=== PATIENT | female | born 1940 | race Caucasian/White ===

== ENCOUNTER 2017-07-04 15:10 | Inpatient (IN) | payer MEDICARE ==
[2017-07-04 15:49] VITALS: BMI 25.3
[2017-07-04] MEDS ORDERED: hydrALAZINE 20 MG/ML VIAL SLOW IVP PRN (18:31)
[2017-07-04] MEDS ORDERED: Dextrose 50% Abboject 50 ML SYRINGE SLOW IVP PRN (18:31)
[2017-07-04] MEDS ORDERED: Ondansetron ODT 4 MG TAB PO PRN (18:33)
[2017-07-04] MEDS ORDERED: Loperamide HCl 2 MG CAP PO PRN (18:33)
[2017-07-04] MEDS ORDERED: Milk Of Magnesia 30 ML UDCUP PO PRN (18:33)
[2017-07-04] MEDS ORDERED: SALIVA STIMULANT AGENTS COMB TOP PRN (19:00)
[2017-07-04] MEDS: traMADol HCl 50 MG TAB PO PRN (19:25)
[2017-07-04] MEDS: Famotidine 20 MG TAB PO SCH (21:33)
[2017-07-04] MEDS: Senokot S 8.6-50 MG TAB PO SCH (21:33)
[2017-07-05] MEDS: traMADol HCl 50 MG TAB PO PRN ×2 (00:22→06:05)
[2017-07-05] MEDS: Acetaminophen 500 MG TAB PO SCH ×4 (00:23→18:28)
--- NOTE | 2017-07-05 02:22 | HP ---
DATE OF ADMISSION: 07/04/2017 HISTORY OF PRESENT ILLNESS: Ms. Gonzalez is a very pleasant 77-year-old white female who was at [employer] when she tripped over something and fell. She had immediate onset of pain on her right hero e including her right hip and her right arm. She was brought by EMS to [facility], where she was evaluated and found to have a right impacted femoral neck fracture. Her right edwardo justino was also x-rayed, but was noted to be negative. She was admitted to the hospital and the next mo rning, Dr. Pb Guillen took her to the surgical suite, where he did an ORIF on her right femoral neck. Postoperatively, she has actually done very well and was transferred to [facility] for physical therapy and occupational therapy. PAST MEDICAL HISTORY: Positive for, 1. Diabetes type 2. 2. Hypertension. 3. Hyperlipidemia. 4. Hypothyroidism. 5. History of GI bleeds x2 in the past. 6. Generalized weakness. PAST SURGICAL HISTORY: 1. Right breast biopsy. 2. Appendectomy. 3. Cholecystectomy. 4. Hysterectomy. 5. Colonoscopy with cauterization of a bleeding vessel. 6. EGD with cauterization of a blood vessel. SOCIAL HISTORY: Reveals the patient smoked about 50 years and stopped in 2013. She smoked about a p ack a day, so she has a 97-[id number] history of smoking. She denies any alcohol or drug use. She is and lives with her in [place]. FAMILY HISTORY: Reveals the patient's father at age 86 of Alzheimer disease. The patient's mot her at age 88 and she had severe arthritis with osteoporosis. ALLERGIES: The patient has noted that she is allergic to CELEBREX, which gives her rash. REVIEW OF SYSTEMS: Revealed the patient denies any vision or hearing changes. The patient denies an y cough, cold, congestion, or wheezing. The patient denies any heart problems including palpitations , dyspnea on exertion, claudication, irregular or gilbert or tachy pulse. The patient denies any abdom inal pain including nausea, vomiting, diarrhea, constipation, or bloody stools. The patient denies a ny problems including nocturia, dysuria, urgency, frequency, or pyuria. The patient denies any mu sculoskeletal problems except for her right hip fracture and her right shoulder, which continues to a lucio quite a bit. She has had a right ORIF done on her femoral neck fracture. The patient denies any skin problems including rashes or new lesions. The patient denies any neurological problems includi ng focal deficits. The patient denies any psychological problems including anxiety and depressive di sorder. PHYSICAL EXAMINATION: VITAL SIGNS: Revealed blood pressure on admission was 123/59, pulse 78, respirations 18-20, O2 sat 9 3%-97% on room air, T-max 97.9. GENERAL: This is a well-developed, well-nourished, very pleasant white female in no apparent distres s at this time. HEENT: Reveals normocephalic, nontraumatic cranium. The pupils are equally round. Extraocular move ments are intact. Nose and throat are slightly dry. NECK: Supple without masses, nodes, or bruits. No jugular venous distention is noted. The patient did have some tenderness on the right side of her neck from falling, but that is mostly resolved. CHEST: Reveals no rales, rhonchi, wheezes, or cough. Breath sounds are little distant, but clear. HEART: Reveals a regular rate and rhythm without murmurs, gallops, or rubs. ABDOMEN: Soft and nontender without organomegaly. Normal bowel sounds are noted. No rebound or gua rding is noted. GENITOURINARY: Deferred. EXTREMITIES: Revealed good pulses in upper and lower extremities, 5/5. Right humerus does hurt with movement of arm, which has been x-rayed and is negative. Right leg has ORIF done at the right femor al neck. NEUROLOGIC: The patient has no focal deficit. She is alert and oriented x3. LABORATORY DATA: Lab is for tomorrow. ASSESSMENT: 1. Hypertension. 2. Diabetes type 2. 3. Hypothyroidism. 4. Hyperlipidemia. 5. Generalized weakness. 6. Fracture of right hip, status post open reduction internal fixation. 7. Generalized weakness. PLAN: 1. Continue physical therapy and occupational therapy. 2. We will continue to follow the patient's blood pressure closely. 3. We will continue to follow the patient's sugars closely with Accu-Cheks before meals and at bedti me. 4. We will continue to monitor the patient for any respiratory problems, especially in her face of 5 0-pack-year history of smoking. 5. We will continue physical therapy and occupational therapy to try to encourage this lady to get m uch better and return home to become independent.
[2017-07-05 05:23] LABS: #Eosinphils 0.2 thou/uL (0.0-0.7); #Lymphocytes 1.6 thou/uL (1.20-3.40); #Monocytes 0.9 thou/uL (0.11-0.59); %Basophils 0.6 % (0.0-1.0); %Eosinophils 3.4 % (0.0-10.0); %Lymphocytes 23.9 % (21.0-51.0); %Monocytes 12.8 % (0.0-10.0); %Neutrophils 59.3 % (42.0-75.0); Hemoglobin 9.9 g/dL (12.0-16.0); Mean Corpuscular HGB CONC 31.6 g/dL (32.0-36.0); Mean Corpuscular Hemoglobin 29.8 pg (27.0-31.0); Mean Platelet Volume 7.9 fL (7.4-10.4); Platelet Count 283 thou/uL (130-400); RBC Distribution Width 12.6 % (11.5-14.5); Red Blood Cell (RBC) Count 3.33 mill/uL (4.20-5.40); White Blood Cell (WBC) Count 6.8 thou/uL (4.8-10.8)
[2017-07-05 05:40] LABS: ALT (SGPT) 11 U/L (8-55); AST (SGOT) 15 U/L (5-34); Albumin 3.4 g/dL (3.4-4.8); Alkaline Phosphatase 69 U/L (40-150); Anion Gap 11 mmol/L (10-20); BUN (Urea Nitrogen) 11 mg/dL (9.8-20.1); Bilirubin, Total 0.4 mg/dL (0.2-1.2); Calc. Creatinine Clearance 87 mL/min (70-130); Calcium 9.8 mg/dL (7.8-10.44); Carbon Dioxide 30 mmol/L (23-31); Chloride 98 mmol/L (98-107); Estimated GFR-MDRD 90; Globulin 3.3 g/dL (2.4-3.5); Glucose 160 mg/dL (83-110); Potassium 4.4 mmol/L (3.5-5.1); Protein, Total 6.7 g/dL (6.0-8.3); Sodium 135 mmol/L (136-145)
[2017-07-05] MEDS: Levothyroxine Sodium 100 MCG TAB PO SCH (06:06)
[2017-07-05 06:51] LABS: Bilirubin Negative (Negative); Blood, Urine Negative (Negative); Clarity Clear (Clear); Glucose, Urine (Dipstick) Negative (Negative); Leukocyte Small (Negative); Nitrite Negative (Negative); Protein, Urine (Dipstick) Negative (Neg-Trace); Specific Gravity, Urine 1.015 (1.005-1.030); pH, Urine 7.5 (5.0-9.0)
[2017-07-05 07:01] LABS: RBC/HPF None Seen HPF (0-3); Squamous Epithelial 0-3 HPF (0-3)
[2017-07-05 07:02] LABS: Bacteria/HPF 1+ HPF (None Seen)
[2017-07-05] MEDS: Senokot S 8.6-50 MG TAB PO SCH ×2 (08:23→21:09)
[2017-07-05] MEDS: metFORMIN 500 MG TAB PO SCH (08:23)
[2017-07-05] MEDS: Famotidine 20 MG TAB PO SCH ×2 (08:23→21:09)
[2017-07-05] MEDS: Potassium Chloride 20 MEQ TAB PO SCH (08:23)
[2017-07-05] MEDS: Rosuvastatin 10 MG TAB PO SCH (08:24)
[2017-07-05] MEDS: Furosemide 20 MG TAB PO SCH (08:24)
[2017-07-05] MEDS: Lisinopril 5 MG TAB PO SCH (08:24)
[2017-07-05] MEDS: Polyethylene Glycol 3350 17 GM Packet PO SCH (08:24)
[2017-07-05] MEDS: Enoxaparin Sodium 40 MG/0.4 ML SYRINGE SC SCH (08:25)
[2017-07-05] MEDS: Bisacodyl 10 MG SUPP PR SCH (08:26)
[2017-07-05] MEDS ORDERED: Enoxaparin Sodium 40 MG/0.4 ML SYRINGE SC SCH (09:00)
--- NOTE | 2017-07-05 20:27 | PRG ---
DATE OF SERVICE: 07/05/2017 HISTORY OF PRESENT ILLNESS: Ms. Gonzalez is a very pleasant 77-year-old white female. She was shoppin g at [facility] when she tripped and fell. She had immediate onset of pain in the right side includin g hip and right arm. Right arm was unremarkable, but a right hip revealed a fracture. She was taken to the surgical suite by Dr. Guillen and had an ORIF on the right femoral neck. Postoperatively, she was transferred to [facility] for continued physical therapy and occupational the rapy. SUBJECTIVE: The patient states she is doing very well and is very pleased with the food here and the care and she states it just could not be better. PHYSICAL EXAMINATION: VITAL SIGNS: This morning reveal blood pressure 106/58, pulse 73-75, respirations 20-21, O2 sat 92% on room air, T-max 98.4. GENERAL: This is a well-developed, well-nourished, very pleasant white female in no apparent distres s at this time. HEENT: Reveals normocephalic, nontraumatic cranium. The pupils are equally round and reactive. Ext raocular movements are intact. Nose and throat are slightly dry, but clear. NECK: Supple, without mass, nodes or bruits. LUNGS: The chest is clear to auscultation. No rales, rhonchi or wheezes are heard. Breath sounds a re a little distant, but clear. CARDIOVASCULAR: Reveals a regular rate and rhythm without murmurs, gallops or rubs. ABDOMEN: Soft, nontender, without organomegaly, normal bowel sounds are noted. No rebound or guardi ng is noted. : Deferred. EXTREMITIES: Reveal good pulses in the upper and lower extremities. Right humerus does hurt with mo vement, but has been x-rayed and negative. Right leg reveals ORIF surgical incisions which are heali ng and not red or significant drainage. NEUROLOGIC: The patient has no focal deficits. She is alert and oriented x3. LABORATORY DATA: Today reveal WBC is 6800 with hemoglobin 9.9, hematocrit 31.3 and a platelet count of 283,000. Chemistry reveals sodium 135, potassium 4.4, chloride 98, carbon dioxide 30 with a creatinine 0.64. Glucose is 161. Her point of care sugars revealed this morning is 156 fasting, before lunch 139, bef ore supper 188. IMPRESSION: 1. Hypertension. 2. Diabetes type 2. 3. Hypothyroidism. 4. Hyperlipidemia. 5. Generalized weakness. 6. Fracture of the right hip, status post open reduction internal fixation. 7. Generalized weakness. PLAN: 1. Continue to monitor the patient's blood pressure closely. 2. Continue to monitor patient Accu-Cheks closely with Accu-Cheks a.c. and at bedtime. 3. Continue to follow the patient for respiratory problems. 4. Continue physical therapy and occupational therapy. 5. Stress ulcer prophylaxis. 6. DVT prophylaxis. 7. Decubitus precautions. 8. Continue physical therapy and occupational therapy.
[2017-07-06] MEDS: Acetaminophen 500 MG TAB PO SCH ×4 (00:42→18:27)
[2017-07-06] MEDS: Levothyroxine Sodium 100 MCG TAB PO SCH (06:10)
[2017-07-06] MEDS: Senokot S 8.6-50 MG TAB PO SCH ×2 (08:43→20:35)
[2017-07-06] MEDS: Bisacodyl 10 MG SUPP PR SCH (08:43)
[2017-07-06] MEDS: Polyethylene Glycol 3350 17 GM Packet PO SCH (08:43)
[2017-07-06] MEDS: Rosuvastatin 10 MG TAB PO SCH (08:44)
[2017-07-06] MEDS: Potassium Chloride 20 MEQ TAB PO SCH (08:44)
[2017-07-06] MEDS: Famotidine 20 MG TAB PO SCH ×2 (08:44→20:37)
[2017-07-06] MEDS: Furosemide 20 MG TAB PO SCH (08:44)
[2017-07-06] MEDS: Enoxaparin Sodium 40 MG/0.4 ML SYRINGE SC SCH (08:45)
[2017-07-06] MEDS: Lisinopril 5 MG TAB PO SCH (08:45)
[2017-07-06] MEDS: metFORMIN 500 MG TAB PO SCH (08:45)
--- NOTE | 2017-07-06 10:32 | PRG ---
DATE OF SERVICE: 07/06/[address] Joshua Vega. SUBJECTIVE: The patient is a very pleasant 77-year-old white female who has fallen and suffered a fr acture of her right femoral neck and is status post open reduction internal fixation and is doing wel l with therapy. She is a partial weightbearing, ambulating with a walker with assistance. She is de nying any shortness of breath or chest pain. She has a previous history of hypertension and type 2 d iabetes, which has been well controlled. OBJECTIVE: VITAL SIGNS: Temperature is 96, pulse 76, respirations 18, O2 sats 95% on room air, blood pressure 1 25/58. LUNGS: Clear. CARDIAC EXAMINATION: Shows regular rhythm. No gallops or murmurs. ABDOMEN: Soft and nontender. SKIN AND EXTREMITIES: Shows a healing right lateral hip incision with fading ecchymoses. ASSESSMENT: 1. Resolving right femoral neck fracture status post open reduction internal fixation, partial weigh tbearing. 2. Type 2 diabetes, well controlled. 3. Hypertension, well controlled. PLAN: Continue PT, OT. Continue stress ulcer and deep venous thrombosis prophylaxis. Continue to t itrate and monitor diabetes with fair control, Accu-Cheks less than 188.
[2017-07-07] MEDS: Acetaminophen 500 MG TAB PO SCH ×5 (00:02→23:45)
[2017-07-07] MEDS: Levothyroxine Sodium 100 MCG TAB PO SCH (06:00)
[2017-07-07] MEDS: Bisacodyl 10 MG SUPP PR SCH (09:36)
[2017-07-07] MEDS: Enoxaparin Sodium 40 MG/0.4 ML SYRINGE SC SCH (09:37)
[2017-07-07] MEDS: Famotidine 20 MG TAB PO SCH ×2 (09:38→20:48)
[2017-07-07] MEDS: Lisinopril 5 MG TAB PO SCH (09:38)
[2017-07-07] MEDS: Polyethylene Glycol 3350 17 GM Packet PO SCH (09:38)
[2017-07-07] MEDS: metFORMIN 500 MG TAB PO SCH (09:38)
[2017-07-07] MEDS: Furosemide 20 MG TAB PO SCH (09:38)
[2017-07-07] MEDS: Rosuvastatin 10 MG TAB PO SCH (09:39)
[2017-07-07] MEDS: Senokot S 8.6-50 MG TAB PO SCH ×2 (09:39→20:49)
[2017-07-07] MEDS: Potassium Chloride 20 MEQ TAB PO SCH (09:39)
--- NOTE | 2017-07-07 21:06 | PRG ---
DATE OF SERVICE: 07/07/2017 SUBJECTIVE: The patient feels well in bed with no complaints of shortness of breath, chest pain or o rthopnea. She is concerned that she is not taking the correct dose of her metformin and therefore Ac cu-Cheks have been up to 183. OBJECTIVE: VITAL SIGNS: Temperature is 98.5, pulse 86, respirations 22, O2 sats 95% on room air. LUNGS: Clear. CARDIAC: Shows regular rhythm. ABDOMEN: Soft and nontender. Right incision lateral hip is healing well. LABORATORY: Show Accu-Cheks do range from 134-183. ASSESSMENT: 1. Status post open reduction internal fixation. 2. Type 2 diabetes with inadequate control secondary to poor med reconciliation. We will increase m etformin to 1000 twice daily. 3. Hypertension, controlled to goal. 4. Hypothyroidism. 5. Generalized weakness. Ready for PT and OT. PLAN: PT, OT in the a.m. Increase metformin to 1000 twice daily. Continue Accu-Cheks. Continue to monitor vital signs. Continue pain relief as needed.
[2017-07-08] MEDS: Levothyroxine Sodium 100 MCG TAB PO SCH (05:34)
[2017-07-08] MEDS: Acetaminophen 500 MG TAB PO SCH ×3 (05:34→17:45)
[2017-07-08] MEDS: metFORMIN 500 MG TAB PO SCH ×2 (09:04→17:46)
[2017-07-08] MEDS: Enoxaparin Sodium 40 MG/0.4 ML SYRINGE SC SCH (09:05)
[2017-07-08] MEDS: Rosuvastatin 10 MG TAB PO SCH (09:05)
[2017-07-08] MEDS: Bisacodyl 10 MG SUPP PR SCH (09:05)
[2017-07-08] MEDS: Potassium Chloride 20 MEQ TAB PO SCH (09:05)
[2017-07-08] MEDS: Furosemide 20 MG TAB PO SCH (09:06)
[2017-07-08] MEDS: traMADol HCl 50 MG TAB PO PRN (09:06)
[2017-07-08] MEDS: Famotidine 20 MG TAB PO SCH ×2 (09:06→20:46)
[2017-07-08] MEDS: Lisinopril 5 MG TAB PO SCH (09:06)
[2017-07-08] MEDS: Polyethylene Glycol 3350 17 GM Packet PO SCH (09:07)
[2017-07-08] MEDS: Senokot S 8.6-50 MG TAB PO SCH ×2 (09:07→20:47)
--- NOTE | 2017-07-08 19:52 | PRG ---
DATE OF SERVICE: 07/08/2017 HISTORY OF PRESENT ILLNESS: Ms. Gonzalez is a very pleasant 77-year-old white female. She was walking and shopping at [employer] when she tripped and fell. She had immediate onset of pain and was disha t to the emergency room, where she was found to have a right femoral neck fracture. She was taken to the surgical suite by Dr. Yury Guillen and had an ORIF done. Postoperatively, she was stout sferred to [facility] for continued physical therapy and occupational therapy. SUBJECTIVE: The patient states she is doing very well, except she is really shaky. She states she w alked about 200 feet, but is very shaky. I did talk with physical therapy and they recommended she stay about another week and a half. OBJECTIVE: VITAL SIGNS: Today revealed, blood pressure 126/59, pulse 79-86, respirations 17-22, O2 sat 94%-95% on room air, T-max 98.5. GENERAL: This is a well-developed, well-nourished, very pleasant white female in no apparent distres s at this time. HEENT: Reveals normocephalic, nontraumatic cranium. Pupils equal, round, and reactive. Extraocular movements intact. Nose and throat are slightly dry, but clear. NECK: Supple without mass, nodes, or bruits. LUNGS: Chest is clear to auscultation. No rales, rhonchi, wheezes, or cough is heard. CARDIOVASCULAR: Reveals a regular rate and rhythm. No murmurs, gallops, or rubs are noted. ABDOMEN: Soft, nontender without organomegaly. Normal bowel sounds are noted. No rebound or guardi ng is noted. GENITOURINARY: Deferred. EXTREMITIES: Revealed no clubbing, cyanosis, or edema. The patient's right humerus continues to hav e some achiness, but is improving. NEUROLOGIC: The patient has no focal deficits. X-rays were absolutely negative in the past. Right leg reveals ORIF surgical incision, which are hea ling well. IMPRESSION: 1. Hypertension. 2. Diabetes type 2. 3. Hypothyroidism. 4. Hyperlipidemia. 5. Fractured right hip, status post open reduction internal fixation. 6. Generalized weakness. PLAN: 1. Continue to monitor the patient's blood pressure closely. 2. Continue to monitor the patient's Accu-Cheks both before meals and at bedtime. 3. Follow the patient's respiratory problems. 4. Continue stress ulcer prophylaxis. 5. DVT prophylaxis. 6. Decubitus precautions. 7. Continue physical therapy and occupational therapy.
[2017-07-09] MEDS: Acetaminophen 500 MG TAB PO SCH ×4 (00:22→18:14)
[2017-07-09] MEDS: Levothyroxine Sodium 100 MCG TAB PO SCH (05:38)
[2017-07-09] MEDS: metFORMIN 500 MG TAB PO SCH ×2 (08:30→17:02)
[2017-07-09] MEDS: Bisacodyl 10 MG SUPP PR SCH (09:15)
[2017-07-09] MEDS: Senokot S 8.6-50 MG TAB PO SCH ×2 (09:16→20:27)
[2017-07-09] MEDS: Enoxaparin Sodium 40 MG/0.4 ML SYRINGE SC SCH (09:16)
[2017-07-09] MEDS: Polyethylene Glycol 3350 17 GM Packet PO SCH (09:16)
[2017-07-09] MEDS: Famotidine 20 MG TAB PO SCH ×2 (09:26→20:27)
[2017-07-09] MEDS: Lisinopril 5 MG TAB PO SCH (09:27)
[2017-07-09] MEDS: Potassium Chloride 20 MEQ TAB PO SCH (09:27)
[2017-07-09] MEDS: Furosemide 20 MG TAB PO SCH (09:27)
[2017-07-09] MEDS: Rosuvastatin 10 MG TAB PO SCH (09:29)
--- NOTE | 2017-07-09 10:09 | PRG ---
DATE OF SERVICE: 07/09/2017 HISTORY OF PRESENT ILLNESS: Ms. Gonzalez is a very pleasant 77-year-old white female that [place] [employer] when she [place]pped and fell and had immediate pain and was found to have a right femoral neck fractur e. She was taken to the surgical suite by Dr. Guillen who proceeded with an ORIF. She was transfe rred to [facility] for continued physical therapy and occupational therapy. The patient states she is doing very well today. She does not like having to get up and down and up and down because that is the hardest part of all of her therapies and it hurts her hip. She is actua lly doing very well. VITAL SIGNS: Blood pressure this morning 122/56, pulse 81, respirations 20, O2 sat 94-96% on room ai r, T-max 98.6. PHYSICAL EXAMINATION: GENERAL: This is a well-developed, well-nourished, very pleasant, slightly obese white female in no apparent distress at this time. HEENT: Reveals normocephalic, nontraumatic cranium. Pupils equal, round, and reactive. Extraocular movements intact. Nose and throat are slightly dry. NECK: Supple, without mass, nodes or bruits. CHEST: Clear to auscultation. No rales, rhonchi, wheezes or cough is heard. CARDIOVASCULAR: Reveals a regular rate and rhythm without murmurs, gallops or rubs. ABDOMEN: Soft, nontender, without organomegaly, normal bowel sounds are noted. No rebound or guardi ng is noted. : Deferred. EXTREMITIES: Reveal no clubbing, cyanosis or edema. Right humeral area has some achiness, but mary kay nues to heal well. NEUROLOGIC: The patient has no focal deficits. IMPRESSION: 1. Hypertension. 2. Diabetes type 2. 3. Hypothyroidism. 4. Hyperlipidemia. 5. Fracture, right hip, status post open reduction internal fixation. 6. Generalized weakness. PLAN: 1. Continue to monitor patient Accu-Cheks a.c. and at bedtime. 2. Edema. Monitor the patient's blood pressure very closely. 3. We will monitor patient's respiratory status. 4. Continue stress ulcer prophylaxis. 5. DVT prophylaxis. 6. Decubitus precaution. 7. Continue PT and OT.
[2017-07-09] MEDS: traMADol HCl 50 MG TAB PO PRN (14:39)
[2017-07-10] MEDS: Acetaminophen 500 MG TAB PO SCH ×4 (05:46→17:56)
[2017-07-10] MEDS: Levothyroxine Sodium 100 MCG TAB PO SCH (05:46)
[2017-07-10] MEDS: metFORMIN 500 MG TAB PO SCH ×2 (07:51→17:56)
[2017-07-10] MEDS: Enoxaparin Sodium 40 MG/0.4 ML SYRINGE SC SCH (08:45)
[2017-07-10] MEDS: Furosemide 20 MG TAB PO SCH (08:48)
[2017-07-10] MEDS: Famotidine 20 MG TAB PO SCH ×2 (08:48→20:48)
[2017-07-10] MEDS: Rosuvastatin 10 MG TAB PO SCH (08:48)
[2017-07-10] MEDS: Lisinopril 5 MG TAB PO SCH (08:49)
[2017-07-10] MEDS: Potassium Chloride 20 MEQ TAB PO SCH (08:49)
[2017-07-10] MEDS: Senokot S 8.6-50 MG TAB PO SCH ×2 (08:58→20:48)
[2017-07-10] MEDS: Polyethylene Glycol 3350 17 GM Packet PO SCH (08:58)
[2017-07-10] MEDS: Bisacodyl 10 MG SUPP PR SCH (08:58)
--- NOTE | 2017-07-10 23:43 | PRG ---
DATE OF ADMISSION: 07/04/2017 DATE OF SERVICE: 07/10/2017 SUBJECTIVE: Ms. Gonzalez is a very pleasant 77-year-old white female that tripped at [facility]. She was found to have a right femoral neck fracture and taken to surgical suite by Dr. Guillen who proceed with ORIF. She was eventually stabilized and transferred to [facility] for continued physical therapy and occupational therapy. She states she is doing very well and has had a good walk this morning then took a shower and is extremely tired. She wants to take a nap. PHYSICAL EXAMINATION: VITAL SIGNS: Reveal blood pressure 122/58, pulse 72, respirations 20, O2 sat 95 %-97%, and T-max 98.4. GENERAL: This is a well-developed, well-nourished, very pleasant white female in no apparent distress at this time. HEENT: Reveals normocephalic, nontraumatic cranium. Pupils are equally round and reactive. Extraocular movements intact. Nose and throat are slightly dry. NECK: Supple, without mass, nodes or bruits. LUNGS: Chest is clear to auscultation. No rales, no rhonchi, no wheezes are heard. No cough is noted. HEART: Reveals a regular rate and rhythm without murmurs, gallops or rubs. ABDOMEN: Soft, nontender, without organomegaly, normal bowel sounds are noted. No rebound or guarding is noted. : Deferred. EXTREMITIES: Reveal no clubbing, cyanosis, or edema. Right humeral area still achy, but continues to heal well. NEUROLOGIC: The patient has no focal deficits. IMPRESSION: 1. Diabetes type 2. 2. Hypertension. 3. Hypothyroidism. 4. Hyperlipidemia. 5. Fracture, right hip, status post open reduction and internal fixation. 6. Generalized weakness. PLAN: 1. Continue to monitor the patient's blood pressure closely. 2. Continue to monitor the patient Accu-Cheks at a.c. and at bedtime. 3. Monitor the patient's respiratory status. 4. Continue physical therapy and occupational therapy. 5. Stress ulcer prophylaxis. 6. DVT prophylaxis. 7. Decubitus precautions. MTDD
[2017-07-11] MEDS: Acetaminophen 500 MG TAB PO SCH ×4 (01:00→17:25)
[2017-07-11] MEDS: Levothyroxine Sodium 100 MCG TAB PO SCH (05:19)
[2017-07-11] MEDS: Enoxaparin Sodium 40 MG/0.4 ML SYRINGE SC SCH (08:29)
[2017-07-11] MEDS: Lisinopril 5 MG TAB PO SCH (08:30)
[2017-07-11] MEDS: Furosemide 20 MG TAB PO SCH (08:31)
[2017-07-11] MEDS: Rosuvastatin 10 MG TAB PO SCH (08:32)
[2017-07-11] MEDS: metFORMIN 500 MG TAB PO SCH ×2 (08:33→17:29)
[2017-07-11] MEDS: Famotidine 20 MG TAB PO SCH ×2 (08:35→21:03)
[2017-07-11] MEDS: Potassium Chloride 20 MEQ TAB PO SCH (08:35)
[2017-07-11] MEDS: Bisacodyl 10 MG SUPP PR SCH (09:18)
[2017-07-11] MEDS: Senokot S 8.6-50 MG TAB PO SCH ×2 (09:18→21:03)
[2017-07-11] MEDS: Polyethylene Glycol 3350 17 GM Packet PO SCH (09:19)
--- NOTE | 2017-07-11 21:10 | PRG ---
DATE OF SERVICE: 07/11/2017 HISTORY OF PRESENT ILLNESS: Ms. Gonzalez is a very pleasant 77-year-old white female. She is in [employer] when she tripped. She was taken to the hospital and found to have a right femoral neck fr acture and taken the surgical suite by Dr. Guillen. She proceed with ORIF and she was eventually s tabilized and transferred to [facility] for continued PT and OT. SUBJECTIVE: The patient states she is doing very well in hopes that she go home sometime fairly next week be back with her soon. Otherwise, she has no complaints. PHYSICAL EXAMINATION: VITAL SIGNS: This morning reveal blood pressure 124/60, pulse 70-84, respirations 20-21, O2 sat 94% on room air, and T-max 98.5. GENERAL: This is a well-developed, well-nourished, very pleasant white female in no apparent distres s at this time. HEENT: Reveals normocephalic, nontraumatic cranium. Pupils equally, round, and reactive. Extraocul ar movements intact. Nose and throat are slightly dry. NECK: Supple, without mass, nodes or bruits. LUNGS: Chest is clear to auscultation. No rales, rhonchi, wheezes, or cough is heard. CARDIOVASCULAR: Reveals a regular rate and rhythm without murmurs, gallops, or rubs. ABDOMEN: Soft, nontender, without organomegaly. Normal bowel sounds are noted. No rebound or guard ing is noted. GENITOURINARY: Deferred. EXTREMITIES: Reveal no clubbing, cyanosis, or edema. Right humeral incision area still looks good. NEUROLOGIC: Patient has no focal deficits. IMPRESSION: 1. Hypertension. 2. Diabetes type 2, stable. 3. Hypothyroidism. 4. Hyperlipidemia. 5. Fracture right hip, status post open reduction internal fixation. 6. Generalized weakness. PLAN: 1. Continue Accu-Cheks one more day. If they are all excellent tomorrow and then will probably do t his every morning. 2. Monitor the patient's blood pressure closely. 3. Monitor the patient's edema. 4. Monitor the patient's respiratory status. 5. Continue stress ulcer prophylaxis. 6. DVT prophylaxis. 7. Decubitus precautions. 8. Continue PT and OT.
[2017-07-12] MEDS: Acetaminophen 500 MG TAB PO SCH ×5 (01:25→23:34)
[2017-07-12] MEDS: Levothyroxine Sodium 100 MCG TAB PO SCH (05:30)
[2017-07-12] MEDS: metFORMIN 500 MG TAB PO SCH ×2 (07:23→16:14)
[2017-07-12] MEDS: traMADol HCl 50 MG TAB PO PRN (08:59)
[2017-07-12] MEDS: Senokot S 8.6-50 MG TAB PO SCH ×2 (09:00→21:34)
[2017-07-12] MEDS: Rosuvastatin 10 MG TAB PO SCH (09:00)
[2017-07-12] MEDS: Enoxaparin Sodium 40 MG/0.4 ML SYRINGE SC SCH (09:00)
[2017-07-12] MEDS: Famotidine 20 MG TAB PO SCH ×2 (09:01→21:33)
[2017-07-12] MEDS: Polyethylene Glycol 3350 17 GM Packet PO SCH (09:01)
[2017-07-12] MEDS: Furosemide 20 MG TAB PO SCH (09:01)
[2017-07-12] MEDS: Potassium Chloride 20 MEQ TAB PO SCH (09:01)
[2017-07-12] MEDS: Lisinopril 5 MG TAB PO SCH (09:01)
[2017-07-12] MEDS: Bisacodyl 10 MG SUPP PR SCH (09:01)
--- NOTE | 2017-07-12 17:02 | PRG ---
DATE OF SERVICE: 07/12/2017 HISTORY OF PRESENT ILLNESS: Ms. Gonzalez is a very pleasant 77-year-old white female that was walking in a [employer] when she tripped. She was taken to the hospital and found to have a femoral neck fracture on the right side. She had an ORIF done by Dr. Guillen and was transferred to [facility] for continued PT and OT. SUBJECTIVE: The patient states she is doing very well and continues to walk better and gets stronger . She would like to go home sometime next week probably by Saturday. PHYSICAL EXAMINATION: VITAL SIGNS: Blood pressure 100/55, pulse 71-84, respirations 16-20, O2 sat 94% on room air, T-max 9 8.5. GENERAL: This is a well-developed, well-nourished, very pleasant, slightly obese white female in no apparent distress at this time. HEENT: Reveals normocephalic, nontraumatic cranium. Pupils equal, round, reactive. Extraocular mov ements intact. Nose and throat are clear, but dry. NECK: Supple, without mass, nodes or bruits. CHEST: Clear to auscultation. No rales, rhonchi, wheezes or cough is heard. CARDIOVASCULAR: Reveals a regular rate and rhythm without murmurs, gallops or rubs. ABDOMEN: Soft, nontender, without organomegaly, normal bowel sounds are noted. No rebound or guardi ng is noted. : Deferred. EXTREMITIES: Reveal no clubbing, cyanosis or edema. Right humeral incision looks good. NEUROLOGIC: Patient has no focal deficits. IMPRESSION: 1. Hypertension. 2. Diabetes type 2, stable. 3. Hypothyroidism. 4. Fracture, right hip. 5. Hyperlipidemia. 6. Generalized weakness. PLAN: 1. Stop Accu-Cheks at this time. 2. Monitor patient's blood pressure closely. 3. Monitor the patient's edema. 4. Monitor the patient's respiratory status. 5. Continue stress ulcer prophylaxis. 6. DVT prophylaxis. 7. Continue decubitus precautions. 8. Continue physical therapy and occupational therapy.
[2017-07-13] MEDS: Levothyroxine Sodium 100 MCG TAB PO SCH (05:40)
[2017-07-13] MEDS: Acetaminophen 500 MG TAB PO SCH ×4 (05:40→23:29)
[2017-07-13 06:13] LABS: #Basophils 0.1 thou/uL (0.0-0.2); #Eosinphils 0.2 thou/uL (0.0-0.7); #Lymphocytes 1.8 thou/uL (1.20-3.40); #Monocytes 0.6 thou/uL (0.11-0.59); #Neutrophils 4.8 thou/uL (1.40-6.50); %Basophils 0.7 % (0.0-1.0); %Eosinophils 2.8 % (0.0-10.0); %Lymphocytes 24.1 % (21.0-51.0); %Monocytes 7.6 % (0.0-10.0); %Neutrophils 64.9 % (42.0-75.0); Hemoglobin 10.6 g/dL (12.0-16.0); Mean Corpuscular HGB CONC 30.5 g/dL (32.0-36.0); Mean Corpuscular Hemoglobin 29.4 pg (27.0-31.0); Mean Corpuscular Volume 96.2 fl (81.0-99.0); Mean Platelet Volume 7.3 fL (7.4-10.4); Platelet Count 335 thou/uL (130-400); RBC Distribution Width 13.7 % (11.5-14.5); Red Blood Cell (RBC) Count 3.61 mill/uL (4.20-5.40); White Blood Cell (WBC) Count 7.4 thou/uL (4.8-10.8)
[2017-07-13 06:23] LABS: ALT (SGPT) 12 U/L (8-55); AST (SGOT) 16 U/L (5-34); Albumin 3.7 g/dL (3.4-4.8); Alkaline Phosphatase 136 U/L (40-150); Anion Gap 14 mmol/L (10-20); BUN (Urea Nitrogen) 13 mg/dL (9.8-20.1); Bilirubin, Total 0.3 mg/dL (0.2-1.2); Calc. Creatinine Clearance 90 mL/min (70-130); Calcium 10.1 mg/dL (7.8-10.44); Carbon Dioxide 26 mmol/L (23-31); Chloride 101 mmol/L (98-107); Estimated GFR-MDRD Greater than 90; Globulin 3.5 g/dL (2.4-3.5); Glucose 120 mg/dL (83-110); Potassium 4.5 mmol/L (3.5-5.1); Protein, Total 7.2 g/dL (6.0-8.3); Sodium 136 mmol/L (136-145)
[2017-07-13] MEDS: metFORMIN 500 MG TAB PO SCH ×2 (07:29→17:08)
[2017-07-13] MEDS: Polyethylene Glycol 3350 17 GM Packet PO SCH (09:06)
[2017-07-13] MEDS: Enoxaparin Sodium 40 MG/0.4 ML SYRINGE SC SCH (09:08)
[2017-07-13] MEDS: Famotidine 20 MG TAB PO SCH ×2 (09:09→20:50)
[2017-07-13] MEDS: Rosuvastatin 10 MG TAB PO SCH (09:09)
[2017-07-13] MEDS: Lisinopril 5 MG TAB PO SCH (09:09)
[2017-07-13] MEDS: Senokot S 8.6-50 MG TAB PO SCH ×2 (09:09→20:50)
[2017-07-13] MEDS: Potassium Chloride 20 MEQ TAB PO SCH (09:09)
[2017-07-13] MEDS: Furosemide 20 MG TAB PO SCH (09:09)
[2017-07-13] MEDS: Bisacodyl 10 MG SUPP PR SCH (09:10)
--- NOTE | 2017-07-13 13:32 | PRG ---
DATE OF SERVICE: 07/13/2017 SUBJECTIVE: Ms. Gonzalez is doing well. Denies any complaints, resting comfortably. No family at bed side. OBJECTIVE: VITAL SIGNS: She is afebrile, heart rate 71, respirations 19, oxygen saturation 95%, blood pressure 121/59. CARDIOVASCULAR SYSTEM: S1 and S2 plus. RESPIRATORY SYSTEM: Normal vesicular breath sounds. ABDOMEN: Soft, nontender, bowel sounds heard in all quadrants. EXTREMITIES: Without cyanosis or clubbing. Hip incision is healthy. CENTRAL NERVOUS SYSTEM: Generalized weakness. LABORATORY VALUES: White count is 7.4, H and H is 10.6 and 34.7, sodium 136, potassium 4.5, BUN and creatinine is 13 and 0.62. Blood sugars are 136, 129, 124, 132. IMPRESSION: 1. Status post open reduction internal fixation of right femoral neck fracture. 2. Hypertension, well controlled. 3. Diabetes mellitus, type 2, well controlled. 4. Hypothyroidism. 5. Dyslipidemia. 6. Deconditioning. PLAN: 1. Continue current medications. 2. 1800-calorie heart healthy ADA diet. 3. DVT and stress ulcer prophylaxis. 4. Incision care. 5. Routine laboratory values. 6. Discussed with patient in detail. All questions answered.
[2017-07-13] MEDS: traMADol HCl 50 MG TAB PO PRN (20:52)
[2017-07-14] MEDS: Acetaminophen 500 MG TAB PO SCH ×4 (05:52→20:45)
[2017-07-14] MEDS: Levothyroxine Sodium 100 MCG TAB PO SCH (05:52)
[2017-07-14] MEDS: metFORMIN 500 MG TAB PO SCH ×2 (08:09→16:43)
[2017-07-14] MEDS: Senokot S 8.6-50 MG TAB PO SCH ×2 (08:10→20:46)
[2017-07-14] MEDS: Enoxaparin Sodium 40 MG/0.4 ML SYRINGE SC SCH (08:10)
[2017-07-14] MEDS: Famotidine 20 MG TAB PO SCH ×2 (08:10→21:16)
[2017-07-14] MEDS: Potassium Chloride 20 MEQ TAB PO SCH (08:10)
[2017-07-14] MEDS: Lisinopril 5 MG TAB PO SCH (08:10)
[2017-07-14] MEDS: Rosuvastatin 10 MG TAB PO SCH (08:10)
[2017-07-14] MEDS: Bisacodyl 10 MG SUPP PR SCH (08:11)
[2017-07-14] MEDS: Furosemide 20 MG TAB PO SCH (08:11)
[2017-07-14] MEDS: Polyethylene Glycol 3350 17 GM Packet PO SCH (08:11)
--- NOTE | 2017-07-14 12:08 | PRG ---
DATE OF SERVICE: 07/14/2017 SUBJECTIVE: Ms. Gonzalez is doing well. Denies any complaints, resting comfortably, tolerating her me dications. Looking forward to resuming therapy tomorrow. OBJECTIVE: VITAL SIGNS: She is afebrile, heart rate is 72, respirations 22, oxygen saturation 95% on room air, blood pressure 118/58. CARDIOVASCULAR: S1, S2 plus. RESPIRATORY: Normal vesicular breath sounds. ABDOMEN: Soft, nontender, bowel sounds heard in all quadrants. Hip incision is healthy. EXTREMITIES: Without cyanosis or clubbing. No edema. LABORATORY DATA: Blood sugars are 129, 124, 132 and 120. IMPRESSION: 1. Right femoral neck fracture, status post open reduction internal fixation. 2. Hypertension, well controlled. 3. Diabetes mellitus type 2, well controlled. 4. Hypothyroidism. 5. Dyslipidemia. 6. Deconditioning. PLAN: 1. Continue current medications. 2. Incision care. 3. A 1800 calorie Heart healthy ADA diet. 4. Deep venous thrombosis and stress ulcer prophylaxis. 5. Decubitus precautions. 6. Physical therapy. 7. Dr. Nicolette Vega back tonight.
[2017-07-14] MEDS: traMADol HCl 50 MG TAB PO PRN (21:16)
[2017-07-15] MEDS: Acetaminophen 500 MG TAB PO SCH ×4 (05:34→20:55)
[2017-07-15] MEDS: Levothyroxine Sodium 100 MCG TAB PO SCH (05:34)
[2017-07-15] MEDS: Bisacodyl 10 MG SUPP PR SCH (08:15)
[2017-07-15] MEDS: Enoxaparin Sodium 40 MG/0.4 ML SYRINGE SC SCH (08:15)
[2017-07-15] MEDS: metFORMIN 500 MG TAB PO SCH ×2 (08:15→17:13)
[2017-07-15] MEDS: Famotidine 20 MG TAB PO SCH ×2 (08:16→20:54)
[2017-07-15] MEDS: Lisinopril 5 MG TAB PO SCH (08:16)
[2017-07-15] MEDS: Polyethylene Glycol 3350 17 GM Packet PO SCH (08:18)
[2017-07-15] MEDS: Senokot S 8.6-50 MG TAB PO SCH ×2 (08:19→20:54)
[2017-07-15] MEDS: Rosuvastatin 10 MG TAB PO SCH (08:19)
[2017-07-15] MEDS: Potassium Chloride 20 MEQ TAB PO SCH (08:19)
[2017-07-15] MEDS: Furosemide 20 MG TAB PO SCH (09:46)
--- NOTE | 2017-07-15 20:32 | PRG ---
DATE OF SERVICE: 07/15/2017 DATE OF ADMISSION: 07/04/2017 HISTORY OF PRESENT ILLNESS: Ms. Gonzalez is a very pleasant 77-year-old white female that tripped and stumbled in a [employer] store in [place]. She was taken to the hospital and found to have a fractured femoral neck on the right side. She had ORIF done by Dr. Guillen, transferred to [facility], continue PT and OT. The patient states she is doing well. She is walking much better. Her balance is much better and sh evelyn will be ready to go home on Saturday. PHYSICAL EXAMINATION: VITAL SIGNS: Revealed blood pressure this morning is 125/65, pulse 95, respirations 29, O2 saturatio n 94% on room air, temperature max 98.7. GENERAL: This is a well-developed, well-nourished, very pleasant white female in no apparent distres s at this time. HEENT: Reveals normocephalic, nontraumatic cranium. Pupils equally round and reactive. Extraocular s intact. Nose and throat are slightly dry. NECK: Supple, without mass, nodes or bruits. CHEST: Clear to auscultation. No rales, rhonchi or wheezes are heard. CARDIOVASCULAR: Reveals a regular rate and rhythm without murmurs, gallops or rubs. ABDOMEN: Soft, nontender, without organomegaly, normal bowel sounds are noted. No rebound or guardi ng is noted. GENITOURINARY: Deferred. EXTREMITIES: Reveal no clubbing, cyanosis or edema. Right incision looks good. Steri-Strips have a ll fallen off and incision looks nice and pink and healthy. NEUROLOGIC: Patient has no focal deficits. IMPRESSION: 1. Hypertension. 2. Diabetes type 2. 3. Hypothyroidism. 4. Fracture, right hip. 5. Hyperlipidemia. 6. Generalized weakness. PLAN: 1. Stop Accu-Cheks. 2. Monitor the patient's blood pressure closely. 3. Monitor the patient's edema. 4. Monitor the patient's respiratory status. 5. Continue stress ulcer prophylaxis. 6. Deep venous thrombosis prophylaxis. 7. Continue decubitus precautions. 8. Continue physical therapy and occupational therapy.
[2017-07-15] MEDS: traMADol HCl 50 MG TAB PO PRN (20:53)
[2017-07-16] MEDS: Acetaminophen 500 MG TAB PO SCH ×4 (06:13→21:03)
[2017-07-16] MEDS: Levothyroxine Sodium 100 MCG TAB PO SCH (06:14)
[2017-07-16] MEDS: metFORMIN 500 MG TAB PO SCH ×2 (08:29→17:07)
[2017-07-16] MEDS: Enoxaparin Sodium 40 MG/0.4 ML SYRINGE SC SCH (08:30)
[2017-07-16] MEDS: Furosemide 20 MG TAB PO SCH (08:30)
[2017-07-16] MEDS: Bisacodyl 10 MG SUPP PR SCH (08:30)
[2017-07-16] MEDS: Famotidine 20 MG TAB PO SCH ×2 (08:30→21:01)
[2017-07-16] MEDS: Lisinopril 5 MG TAB PO SCH (08:31)
[2017-07-16] MEDS: Polyethylene Glycol 3350 17 GM Packet PO SCH (08:31)
[2017-07-16] MEDS: Rosuvastatin 10 MG TAB PO SCH (08:32)
[2017-07-16] MEDS: Senokot S 8.6-50 MG TAB PO SCH ×2 (08:32→21:03)
[2017-07-16] MEDS: Potassium Chloride 20 MEQ TAB PO SCH (08:32)
--- NOTE | 2017-07-16 19:04 | PRG ---
DATE OF SERVICE: 07/16/2017 HISTORY OF PRESENT ILLNESS: Ms. Gonzalez is a very pleasant 77-year-old white female who stumbled at [employer] in [place]. She was picked up by EMS and brought to the hospital and foun elizabeth to have a fractured femoral neck on the right side. She had an ORIF done by Dr. Guillen and stout sferred to [facility] for continued PT and OT. SUBJECTIVE: The patient states she is doing very well and she has no complaints. She is walking muc h better and she is excited to show off her how well she can walk. He will be picking her up tomorrow around 1:00. OBJECTIVE: VITAL SIGNS: Reveal blood pressure this morning is 106/54, pulse 66, respirations 20, O2 sat 96% on room air, T-max 96.3. GENERAL: This is a well-developed, well-nourished, slightly obese white female, in no apparent distr ess at this time. HEENT: Reveals normocephalic, nontraumatic cranium. The pupils are equally round and reactive. Ext raocular movements are intact. Nose and throat are slightly dry. NECK: Supple without mass, nodes or bruits. CHEST: Clear to auscultation. No rales, no rhonchi, no wheezes are heard. CARDIOVASCULAR: Reveals a regular rate and rhythm without murmurs, gallops or rubs. ABDOMEN: Soft, nontender, without organomegaly, normal bowel sounds are noted. No rebound or guardi ng is noted. : Deferred. EXTREMITIES: Reveal no clubbing, cyanosis or edema. Right incision continues to look good. NEUROLOGIC: The patient has no focal deficits. IMPRESSION: 1. Hypertension. 2. Diabetes type 2. 3. Hypothyroidism. 4. Hyperlipidemia. 5. Fracture of right hip, status post open reduction and internal fixation by Dr. Yury Tucker son. 6. Generalized weakness. PLAN: 1. Accu-Cheks could be stopped. 2. Monitor the patient's blood pressure closely. 3. Continue to monitor the patient's edema. 4. Monitor the patient's respiratory status. 5. Stress ulcer prophylaxis. 6. Deep venous thrombosis prophylaxis. 7. Decubitus precautions. 8. Continue physical therapy and occupational therapy as outpatient basis. 9. The patient may need a prescription for a walker.
[2017-07-16] MEDS: traMADol HCl 50 MG TAB PO PRN (21:00)
[2017-07-17] MEDS: Acetaminophen 500 MG TAB PO SCH ×2 (06:03→12:52)
[2017-07-17] MEDS: Levothyroxine Sodium 100 MCG TAB PO SCH (06:03)
[2017-07-17 08:13] VITALS: BP 129/62; TEMP 97.1
[2017-07-17] MEDS: Famotidine 20 MG TAB PO SCH (08:32)
[2017-07-17] MEDS: Lisinopril 5 MG TAB PO SCH (08:33)
[2017-07-17] MEDS: Senokot S 8.6-50 MG TAB PO SCH (08:33)
[2017-07-17] MEDS: metFORMIN 500 MG TAB PO SCH (08:33)
[2017-07-17] MEDS: Furosemide 20 MG TAB PO SCH (08:33)
[2017-07-17] MEDS: Potassium Chloride 20 MEQ TAB PO SCH (08:33)
[2017-07-17] MEDS: Bisacodyl 10 MG SUPP PR SCH (08:34)
[2017-07-17] MEDS: Enoxaparin Sodium 40 MG/0.4 ML SYRINGE SC SCH (08:34)
[2017-07-17] MEDS: Polyethylene Glycol 3350 17 GM Packet PO SCH (08:34)
[2017-07-17] MEDS: Rosuvastatin 10 MG TAB PO SCH (08:34)
--- NOTE | 2017-07-18 00:57 | DIS ---
DATE OF ADMISSION: 07/04/2017 DATE OF DISCHARGE: 07/17/2017 HISTORY: Ms. Gonzalez is a very pleasant 77-year-old white female, who has stumbled in [email or web address] store in [place]. She unfortunately fractured her right side of femoral neck was taken to [facility] where Dr. Yury Guillen did an ORIF. She eventually was transferred to [facility] for continued physical therapy and occupational therapy. SUBJECTIVE: The patient states she is doing very well. She is walking upwards of 200 feet without s ignificant problems. Her balance is much improved. Her stamina is much improved. She has reached [facility] and is ready for discharge to home. The patient has chosen to go to [facility] on [address] in [place], [place] since that is near her home. A prescription has been written for that. We did discuss all the patient's medications and she states she has all of them at home. The patient states she is doing very well and is ready to go home with her who is here ciprianoin for her. DISCHARGE MEDICATIONS: Include the followin. Acetaminophen 1000 mg q.6 hours p.r.n. 2. Diltiazem 240 mg at bedtime. 3. Pepcid 20 mg b.i.d. 4. Lasix 20 mg scheduled daily. 5. Levothyroxine 100 mcg 1 pill every morning. 6. Lisinopril 5 mg daily. 7. Metformin 1000 mg p.o. b.i.d. with meals. 8. MiraLax 17 grams daily p.r.n. 9. Potassium chloride 20 mEq daily. 10. Crestor 10 mg at bedtime. 11. Biotene Moisturizing Mouthwash q.2 hours p.r.n. 12. The patient has no home pain medications. PHYSICAL EXAMINATION: VITAL SIGNS: Today reveal blood pressure this morning 128/59, pulse 71-89, respirations 16-18, O2 sa t 94% to 95% on room air, T-max is 98.1. GENERAL: This is a well-developed, well-nourished, very pleasant white female, in no apparent distre ss at this time. HEENT: Reveals normocephalic, nontraumatic cranium. Pupils are equally round, and reactive. Extrao cular movements intact. Nose and throat are slightly dry. NECK: Supple, without mass, nodes or bruits. CHEST: Clear to auscultation. No rales, rhonchi, wheezes or cough is heard. HEART: Reveals a regular rate and rhythm without murmurs, gallops or rubs. ABDOMEN: Soft, nontender, without organomegaly. Normal bowel sounds are noted in all 4 quadrants. No rebound or guarding is noted. GENITOURINARY: Deferred. EXTREMITIES: Reveal no clubbing, cyanosis or edema. Right incision continues to look good and is he aling well. NEUROLOGIC: The patient has no focal deficits. IMPRESSION: 1. Hypertension. 2. Diabetes, type 2, which has been stable and her Accu-Cheks have been stopped. 3. Hypothyroidism. 4. Hyperlipidemia. 5. Right hip fracture, status post open reduction and internal fixation by Dr. Yury Guillen . 6. Generalized weakness. PLAN: 1. The patient will be discharged today. 2. Continue present medications. 3. The patient to make an appointment with Dr. Yogesh Gu within the next 1-2 weeks. 4. Continue to monitor the patient's blood pressure at home. 5. Continue to monitor the patient's diabetes at home as needed. 6. Continue outpatient physical therapy and occupational therapy at [facility] in [place], [place], which is near her house. 7. Continue stress ulcer prophylaxis. 8. Decubitus precautions. 9. The patient will be transferred to the care of her PCP, Dr. Yogesh Gu.
== END 2017-07-17 14:42 | disposition home or self-care (01) | DRG 561 ==
LOC: NAV ACUTE 15:10
PROVIDERS: ADMIT Family Medicine; ATTEND Family Medicine
DX: S72.001D Fracture of unspecified part of neck of right femur, subsequent encounter for closed fracture with routine healing (principal); E11.9 Type 2 diabetes mellitus without complications; I10 Essential (primary) hypertension; E78.5 Hyperlipidemia, unspecified; E03.9 Hypothyroidism, unspecified; Z87.891 Personal history of nicotine dependence
CPT/HCPCS: 36415; 36416; 80053; 81001; 85025; J1650; Q0162